=== PATIENT | female | born 1955 | race Caucasian/White ===

== ENCOUNTER 2017-05-03 12:22 | Emergency (ER) | payer BC ==
[~2017-05-03] VITALS: Ht 160 cm; Wt 66.7 kg
--- NOTE | 2017-05-03 12:22 | NUR ---
[id number] FROM HOME: BLEEDING SURGICAL INCISIONS S/P FACE-LIFT SURGERY x 1 WEEK. NAD NOTED. PT AAO X4, AMB WITH STEADY GAIT RR EVEN AND UNLABORED. PENDING MD HAHN.
--- NOTE | 2017-05-03 12:30 | NUR ---
CALLED DR ESCALANTE OFFICE, ON THE PHONE WITH DR SALAS.
--- NOTE | 2017-05-03 12:49 | NUR ---
CALLED DR ESCALANTE OFFICE, ON THE PHONE WITH DR SALAS.
--- NOTE | 2017-05-03 12:57 | NUR ---
PAGED DR. SINHA FOR CONSULT
--- NOTE | 2017-05-03 13:06 | NUR ---
PAGED DR. COLEMAN FOR CONSULT
--- NOTE | 2017-05-03 13:07 | NUR ---
PAGED DR. CALLAHAN FOR CONSULT
[2017-05-03 13:09] LABS: BASOPHILS % (AUTO) 1.1 % (0.0-2.0); EOSINOPHILS % (AUTO) 9.5 % (0.0-6.0); HEMATOCRIT 36 % (33-45); HEMOGLOBIN 12.3 g/dL (11.5-14.8); LYMPHOCYTES # (AUTO) 3.1 /CMM (0.8-4.8); LYMPHOCYTES % (AUTO) 41.5 % (20.0-44.0); MEAN CORPUSCULAR HEMOGLOBIN 31 PG (26.0-33.0); MEAN CORPUSCULAR HGB CONC 34 g/dl (31.0-36.0); MEAN CORPUSCULAR VOLUME 90 fL (82-100); MONOCYTES % (AUTO) 5.7 % (2.0-12.0); NEUTROPHILS # (AUTO) 3.3 /CMM (1.8-8.9); NEUTROPHILS % (AUTO) 42.2 % (43.0-81.0); PLATELET COUNT (AUTO) 231 /CMM (150-450); RDW COEFFICIENT OF VARIATION 12.3 (11.5-15.0); RED BLOOD CELL COUNT(AUTO) 3.99 MIL/uL (4.0-5.2); WHITE BLOOD COUNT (AUTO) 7.6 K/uL (4.3-11.0)
[2017-05-03 13:10] LABS: BASOPHILS # (AUTO) 0.1 /CMM (0.0-0.2); EOSINOPHILS # (AUTO) 0.7 /CMM (0.0-0.7); MONOCYTES # (AUTO) 0.4 /CMM (0.1-1.30)
[2017-05-03 13:15] LABS: CALCIUM, SERUM 8.8 mg/dL (8.5-10.1); POTASSIUM 3.7 mmol/L (3.5-5.1)
--- NOTE | 2017-05-03 13:17 | NUR ---
Michael zhang in [place] - 05/03/17 at 1320 by THAD HALIE SALAS FOR CONSULT
--- NOTE | 2017-05-03 13:20 | NUR ---
PAGED DR. MALIK FOR CONSULT
[2017-05-03 13:23] LABS: INR 0.98 (0.87-1.13); PROTHROMBIN TIME 10.2 SECS (9.5-12.7)
--- NOTE | 2017-05-03 13:24 | NUR ---
CALLED DR ESCALANTE OFFICE, ON THE PHONE WITH DR SALAS.
--- NOTE | 2017-05-03 13:48 | NUR ---
CALLED [facility] FOR TRANSPORT ETA 40 MIN CALLED [facility] FOR TRANSPORT ETA 60 MIN CALLED [facility] FOR TRANSPORT ETA 30 MIN
--- NOTE | 2017-05-03 14:29 | NUR ---
[facility] NURSING GEAR CUTTING MACHINE OPERATOR AT [facility] CALLED TO DECLINE THE PATIENT DUE TO ED SAT
[2017-05-03 15:00] VITALS: BP 144/83
--- NOTE | 2017-05-03 15:11 | NUR ---
ATTEMPTED TO GIVE REPORT TO ER CHARGE NURSE, SHE SHE REFUSED TO ACCEPT THE PATIENT. ALTHOUGH ER CHARGE NURSE REFUSED PT, GENIVIVE RN NURSING ELECTRONICS SYSTEM MECHANIC AND DR. DUNLAP ACCEPTED THE PATIENT IN THE ED
== END 2017-05-03 19:41 | disposition short-term general hospital (02) ==
LOC: ER 12:22
DX: L76.22 Postprocedural hemorrhage of skin and subcutaneous tissue following other procedure (principal); E03.9 Hypothyroidism, unspecified; J45.909 Unspecified asthma, uncomplicated
CPT/HCPCS: 36415; 80048; 85025; 85730; 96360; 99285; A4606; A6402; A6403; J7040; Z7610